=== PATIENT | male | born 2000 | race Caucasian/White ===

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

== ENCOUNTER 2019-02-06 15:18 | Emergency (ER) | payer OTHER, MEDICAID ==
[~2019-02-06] VITALS: Ht 170.2 cm; Wt 82.2 kg
[2019-02-06 15:37] VITALS: Ht 170.2 cm; Wt 82.2 kg
[2019-02-06 16:33] LABS: BASOPHIL % 0.3 % (0-2); PLATELET COUNT 394 x10^3mcL (130-400); RED CELL DISTRIBUTION WIDTH 12.7 % (11.5-14.5)
[2019-02-06 16:38] LABS: CALCIUM 9.2 mg/dL (8.5-10.1); CARBON DIOXIDE 27.1 mmol/L (21-32); CHLORIDE SERUM 95 mmol/L (98-107); CREATININE SERUM 0.9 mg/dL (0.7-1.3); GFR1 > 60 mL/min; GLUCOSE SERUM 450 mg/dL (74-106); POTASSIUM SERUM 3.9 mmol/L (3.5-5.1); SODIUM SERUM 134 mmol/L (136-145)
[2019-02-06 16:43] LABS: ALKALINE PHOSPHATASE 127 U/L (46-116); ALT/SGPT 14 U/L (16-63); AST/SGOT 9 U/L (15-37); BILIRUBIN TOTAL 0.45 mg/dL (0.20-1.00)
[2019-02-06 17:13] LABS: TOTAL PROTEIN, SERUM 8.9 g/dL (6.4-8.2)
[2019-02-06 21:00] VITALS: BP 133/74
== END 2019-02-06 21:00 | disposition home or self-care (01) ==
LOC: ED 15:18
PROVIDERS: Emergency Medicine
DX: L05.01 Pilonidal cyst with abscess (principal); E11.65 Type 2 diabetes mellitus with hyperglycemia; E78.00 Pure hypercholesterolemia, unspecified
CPT/HCPCS: 82962; J1885; J2001; J2270; J3490; J7030

== ENCOUNTER 2019-02-08 17:21 | Emergency (ER) | payer OTHER, MEDICAID ==
[~2019-02-08] VITALS: Ht 170.2 cm; Wt 718.5 kg
[2019-02-08 17:39] VITALS: Ht 170.2 cm; Wt 718.5 kg
[2019-02-08 18:04] VITALS: BP 132/85
== END 2019-02-08 18:04 | disposition home or self-care (01) ==
LOC: ED 17:21
DX: L05.01 Pilonidal cyst with abscess (principal); E11.9 Type 2 diabetes mellitus without complications; E78.00 Pure hypercholesterolemia, unspecified; Z48.01 Encounter for change or removal of surgical wound dressing

== ENCOUNTER 2019-02-10 17:00 | Emergency (ER) | payer OTHER, MEDICAID ==
[~2019-02-10] VITALS: Ht 170.2 cm; Wt 84.4 kg
[2019-02-10 17:10] VITALS: Ht 170.2 cm; Wt 84.4 kg
[2019-02-10 20:03] VITALS: BP 134/90
== END 2019-02-10 20:03 | disposition home or self-care (01) ==
LOC: ED 17:00
DX: L05.01 Pilonidal cyst with abscess (principal); E11.9 Type 2 diabetes mellitus without complications; E78.00 Pure hypercholesterolemia, unspecified; Z48.01 Encounter for change or removal of surgical wound dressing